=== PATIENT | male | born 1980 | race American Indian/Alaskan Native ===

== ENCOUNTER 2021-07-14 16:38 | Emergency (ER) | payer SELFPAY ==
[2021-07-14 17:51] VITALS: BP 151/104
--- NOTE | 2021-07-14 20:41 | Emergency Department Report ---
ED General Adult HPI - General Chief complaint: Dental/Oral Stated complaint: TOOTHACHE/INFECTION Source: patient Mode of arrival: Ambulatory Limitations: No Limitations - History of Present Illness Initial comments: Patient is a 40-year-old -[place] male with no past medical history who presents to the ED with complaint of acute onset persistent painful swollen left mandibular gingiva and premolar and molar toothache for the last 3 months, worse in the last 1 week. Patient states that the pain is especially worse with eating and speech. Patient states that he is unable to get an appointment with a dentist until 2 months time, and therefore is unable to wait until that time due to worsening pain. Patient states that he has been taking [id number] pain medications with no relief. Patient denies dizziness, fever, chills, nausea and vomiting, chest pain, shortness of breath, traumatic injury, headache, neck pain, back pain, cough or sore throat and abdominal pain. MD Complaint: dental pain, swollen gum -: Gradual, month(s) (3) Location: mouth Severity scale (0 -10): 7 Quality: aching, sharp Consistency: constant Improves with: none Worsens with: eating Associated Symptoms: denies other symptoms. denies: confusion, chest pain, cough, diaphoresis, fever/chills, headaches, loss of appetite, malaise, nausea/vomiting, rash, seizure, shortness of breath, syncope, weakness Treatments Prior to Arrival: none (Dental pain, swollen painful gingiva) - Related Data Previous Rx's Medication Instructions Recorded Last Taken Type Amoxicillin [Trimox CAP] 500 mg PO Q8H #21 capsule 06/19/13 Unknown Rx traMADoL [Ultram] 50 mg PO Q4HR PRN #15 tablet 06/19/13 Unknown Rx Acetaminophen/Codeine [Tylenol 1 - 2 tab PO Q6H PRN #10 tab 07/14/21 Unknown Rx /Codeine # 3 tab] Clindamycin [Clindamycin CAP] 300 mg PO Q8H #30 cap 07/14/21 Unknown Rx Ketorolac [Toradol] 10 mg PO Q8H PRN #20 tab 07/14/21 Unknown Rx Allergies Allergy/AdvReac Type Severity Reaction Status Date / Time No Known Allergies Allergy Verified 06/19/13 03:26 ED Review of Systems ROS: Stated complaint: TOOTHACHE/INFECTION Other details as noted in HPI Constitutional: denies: chills, fever Eyes: denies: eye pain, eye discharge, vision change ENT: dental pain (Left mandibular premolar and molar toothache), other (Swollen left mandibular gingiva with pain). denies: ear pain, throat pain Respiratory: denies: cough, shortness of breath, wheezing Cardiovascular: denies: chest pain, palpitations Endocrine: no symptoms reported Gastrointestinal: denies: abdominal pain, nausea, vomiting, diarrhea Genitourinary: denies: urgency, dysuria Musculoskeletal: denies: back pain, joint swelling, arthralgia Skin: denies: rash, lesions Neurological: denies: headache, weakness, paresthesias Psychiatric: denies: anxiety, depression Hematological/Lymphatic: denies: easy bleeding, easy bruising ED Past Medical Hx - Surgical History Additional Surgical History: tendon surg l)2nd finger - Social History Smoking Status: Never Smoker Substance Use Type: None - Medications Home Medications: Home Medications Medication Instructions Recorded Confirmed Last Taken Type Amoxicillin [Trimox CAP] 500 mg PO Q8H #21 capsule 06/19/13 Unknown Rx traMADoL [Ultram] 50 mg PO Q4HR PRN #15 tablet 06/19/13 Unknown Rx Acetaminophen/Codeine [Tylenol 1 - 2 tab PO Q6H PRN #10 tab 07/14/21 Unknown Rx /Codeine # 3 tab] Clindamycin [Clindamycin CAP] 300 mg PO Q8H #30 cap 07/14/21 Unknown Rx Ketorolac [Toradol] 10 mg PO Q8H PRN #20 tab 07/14/21 Unknown Rx ED Physical Exam - General Limitations: No Limitations General appearance: alert, in no apparent distress - Head Head exam: Present: atraumatic, normocephalic, normal inspection - Eye Eye exam: Present: normal appearance, PERRL, EOMI Pupils: Present: normal accommodation - ENT ENT exam: Present: mucous membranes moist, TM's normal bilaterally, normal external ear exam, other (Swollen, tender left mandibular gingiva; tender left mandibular premolar and molar teeth) - Neck Neck exam: Present: normal inspection, full ROM, lymphadenopathy. Absent: tenderness - Respiratory Respiratory exam: Present: normal lung sounds bilaterally. Absent: respiratory distress, wheezes, rales, rhonchi, chest wall tenderness, accessory muscle use, decreased breath sounds, other - Cardiovascular Cardiovascular Exam: Present: regular rate, normal rhythm, normal heart sounds. Absent: systolic murmur, diastolic murmur, rubs, gallop - GI/Abdominal GI/Abdominal exam: Present: soft, normal bowel sounds. Absent: tenderness, guarding, rebound, hyperactive bowel sounds, hypoactive bowel sounds, organomegaly - Extremities Exam Extremities exam: Present: normal inspection, full ROM, normal capillary refill. Absent: tenderness - Back Exam Back exam: Present: normal inspection, full ROM. Absent: tenderness, CVA tenderness (R), CVA tenderness (L), muscle spasm, paraspinal tenderness, vertebral tenderness - Neurological Exam Neurological exam: Present: alert, oriented X3, CN II-XII intact, normal gait, reflexes normal - Psychiatric Psychiatric exam: Present: normal affect, normal mood - Skin Skin exam: Present: warm, dry, intact, normal color. Absent: rash ED Course Vital Signs 07/14/21 17:50 Temperature 98.7 F Pulse Rate 88 Respiratory 18 Rate Blood Pressure 151/104 [Right] O2 Sat by Pulse 98 Oximetry ED Medical Decision Making - Medical Decision Making This is a 40-year-old -[place] male with no past medical history who presents to the ED with complaint of acute onset persistent painful swollen left mandibular gingiva and premolar and molar toothache for the last 3 months, worse in the last 1 week. Patient states that the pain is especially worse with eating and speech. Patient states that he is unable to get an appointment with a dentist until 2 months time, and therefore is unable to wait until that time due to worsening pain. Patient states that he has been taking [id number] pain medications with no relief. In the ED, patient is alert and oriented x3 and is not in any distress. Patient is hemodynamically stable. Patient will discharge home on pain medications and antibiotics and advised to follow-up with his dentist as previously scheduled. Patient advised return to the ED immediately if symptoms get worse. - Differential Diagnosis Dental abscess; chronic gingivitis; dental caries Critical care attestation.: If time is entered above; I have spent that time in minutes in the direct care of this critically ill patient, excluding procedure time. ED Disposition Clinical Impression: Chronic gingivitis, Dental abscess Disposition: HOME / SELF CARE / HOMELESS Is pt being admited?: No Does the pt Need Aspirin: No Condition: Stable Instructions: Dental Abscess, [id number], Trench Mouth Additional Instructions: Take medication with food, drink plenty fluids and follow-up with the dentist as previously scheduled in August. Return to the ED immediately if symptoms get worse. Prescriptions: Clindamycin [Clindamycin CAP] 300 mg PO Q8H #30 cap Ketorolac [Toradol] 10 mg PO Q8H PRN #20 tab PRN Reason: Pain Acetaminophen/Codeine [Tylenol /Codeine # 3 tab] 1 - 2 tab PO Q6H PRN #10 tab PRN Reason: Pain , Severe (7-10) Referrals: JUAN A GASTELUM MD [Primary Care Provider] - 3-5 Days [facility] [Outside] - 7-10 days Time of Disposition: 20:42 Print Language: FRENCH
== END 2021-07-14 21:54 | disposition home or self-care (01) ==
LOC: ED 16:38
DX: K04.7 Periapical abscess without sinus (principal); K05.10 Chronic gingivitis, plaque induced; Z79.899 Other long term (current) drug therapy
CPT/HCPCS: 99282